=== PATIENT | female | born 1945 | race Caucasian/White ===

== ENCOUNTER 2017-03-25 22:40 | Emergency (ER) | payer MEDICARE, OTHER ==
[~2017-03-25] VITALS: Ht 170.2 cm; Wt 81.8 kg
[2017-03-25 22:43] VITALS: TEMP 98.3
[2017-03-25] MEDS ORDERED: SODIUM CHLORIDE1 GM PO (22:47)
[2017-03-25] MEDS ORDERED: ZANTAC 150150 MG (22:47)
[2017-03-25] MEDS ORDERED: LIPITOR20 MG PO (22:47)
[2017-03-25] MEDS ORDERED: PLAVIX 300MG T300 MG PO (22:47)
[2017-03-25] MEDS ORDERED: CELEXA40 MG PO (22:47)
[2017-03-25] MEDS ORDERED: ZESTRIL30 MG PO (22:48)
[2017-03-25] MEDS ORDERED: INDERAL40 MG PO (22:48)
[2017-03-26 00:41] VITALS: BP 148/79; PULSE 72
== END 2017-03-26 00:43 | disposition home or self-care (01) ==
LOC: COL.ER 22:40
DX: M54.2 Cervicalgia (principal); R51 Headache; M25.512 Pain in left shoulder; M25.511 Pain in right shoulder; M79.601 Pain in right arm; M79.641 Pain in right hand; S09.93XA Unspecified injury of face, initial encounter; S09.90XA Unspecified injury of head, initial encounter; S19.9XXA Unspecified injury of neck, initial encounter; Z91.81 History of falling; W01.10XA Fall on same level from slipping, tripping and stumbling with subsequent striking against unspecified object, initial encounter; Y92.009 Unspecified place in unspecified non-institutional (private) residence as the place of occurrence of the external cause; I10 Essential (primary) hypertension; Z79.02 Long term (current) use of antithrombotics/antiplatelets

== ENCOUNTER 2022-05-03 17:28 | Emergency (ER) | payer MEDICARE, OTHER ==
[~2022-05-03] VITALS: Ht 167.6 cm; Wt 86.4 kg
[~2022-05-03 17:28] MED LIST: CELEXA40 MG PO; INDERAL40 MG PO; LIPITOR20 MG PO; PLAVIX 300MG T300 MG PO; SODIUM CHLORIDE1 GM PO; ZANTAC 150150 MG; ZESTRIL30 MG PO
[2022-05-03 18:06] VITALS: TEMP 98.1
[2022-05-03 21:09] VITALS: BP 137/83; PULSE 63
== END 2022-05-03 21:12 ==
LOC: COL.ER 17:28
DX: S51.812A Laceration without foreign body of left forearm, initial encounter (principal); S80.12XA Contusion of left lower leg, initial encounter; Z79.02 Long term (current) use of antithrombotics/antiplatelets; Z23 Encounter for immunization; W06.XXXA Fall from bed, initial encounter